=== PATIENT | male | born 1980 | race Caucasian/White ===

== ENCOUNTER 2019-09-28 06:43 | Outpatient (CLI) | payer OTHER ==
--- NOTE | 2019-09-28 08:53 | MRI Report ---
Reason: LT KNEE PAIN Procedure Date: 09/28/2019 Accession Number: [id number] / [id number] Procedure: MRI - Knee LT W/O CPT Code: Final Report FULL RESULT: EXAM: LEFT KNEE MRI WITHOUT CONTRAST EXAM DATE: 09/28/2019 08:03 AM. CLINICAL HISTORY: Left knee pain. COMPARISON: None. TECHNIQUE: Multiplanar, multisequence T1-weighted and fluid-sensitive sequences of the knee without contrast. Other: None. FINDINGS: Bones: Minimal lateral compartment osteophyte formation is present. No fractures. Reactive marrow edema is in the lateral patellar facet. There is also some mild reactive marrow edema in the lateral trochlea. A benign bone island is in the distal lateral femoral condyle. Articular Cartilage: The lateral patellar facet articular cartilage is moderately thinned with surface irregularity. Full-thickness cartilage loss is demonstrated throughout much of the central and lateral trochlea. This is best seen on series 401, image 23. The inferior medial femoral condyle articular cartilage has mild surface irregularity. The lateral compartment articular cartilage is intact. Medial Meniscus: The medial meniscus is intact. Lateral Meniscus: The lateral meniscus is intact. Cruciate Ligaments: The anterior and posterior cruciate ligaments are intact. Collateral Ligaments: The medial collateral and lateral collateral ligamentous structures are intact. Tendons: The quadriceps, patellar, semimembranosus, and popliteus tendons are unremarkable. Musculature: No edema or fatty atrophy. Other: A mild knee effusion is present. There is a moderate-sized popliteal cyst. No loose bodies. The medial and lateral retinacula are intact. Prepatellar subcutaneous edema is seen. IMPRESSION: 1. Mild osteoarthritis worst in the patellofemoral joint. 2. Mild knee effusion and moderate-sized popliteal cyst. [facility]
== END 2019-09-28 06:44 | disposition home or self-care (01) ==
LOC: DI 06:43
DX: M17.12 Unilateral primary osteoarthritis, left knee (principal); M25.462 Effusion, left knee; M71.22 Synovial cyst of popliteal space [Baker], left knee